=== PATIENT | female | born 1950 | race Caucasian/White ===

== ENCOUNTER 2018-12-19 09:58 | Emergency (ER) | payer BC ==
[2018-12-19 10:22] VITALS: BMI 18.4
[2018-12-19 10:35] VITALS: BP 158/105
[2018-12-19 10:36] LABS: BASO % 0.5 % (0-2.0); EOS % 0.2 % (0-4.5); HEMATOCRIT 38.9 % (32.4-45.2); HEMOGLOBIN 12.8 GM/dl (10.7-15.3); LYMPH % 36.2 % (8-40); MCH 33.5 pg (25.7-33.7); MEAN CELL VOLUME 101.5 fl (80-96); MEAN PLT VOLUME 8.2 fl (7.5-11.1); MONO % 9.3 % (3.8-10.2); NEUT % 53.8 % (42.8-82.8); PLATELET COUNT 428 K/MM3 (134-434); RBC 3.83 M/mm3 (3.60-5.2); RDW 16.2 % (11.6-15.6); WHITE BLOOD COUNT 9.4 K/mm3 (4.0-10.8)
[2018-12-19 10:41] VITALS: PULSE 75; TEMP 98.5
[2018-12-19 10:42] LABS: INR 0.99 (0.82-1.09); PROTHROMBIN TIME (PATIENT) 11.1 SEC (10.2-13.0)
[2018-12-19 10:43] LABS: ALBUMIN 4.9 g/dl (3.4-5.0); BILIRUBIN,TOTAL 0.8 mg/dl (0.2-1); CALCIUM 10.6 mg/dl (8.5-10); CREATININE 0.7 mg/dl (0.55-1.3); MAGNESIUM 1.8 mg/dL (1.8-2.4); TOT PROT 7.6 g/dl (6.4-8.2)
--- NOTE | 2018-12-19 10:57 | PDOC ---
History of Present Illness - General Chief Complaint: Chest Pain Stated Complaint: SOB & CHEST PAINFOR SEVERAL DAYS Time Seen by Provider: 12/19/18 10:00 - History of Present Illness Initial Comments: 12/19/18 11:00 68-year-old female with a significant past medical history of thoracic aortic aneurysm (per pt, 5cm on last check), connective tissue disease, rheumatoid arthritis, anxiety, GERD presents to the emergency department with 2 weeks of progressive sternal chest pain. Patient reports the pain began while she was at rest 2 days ago at home. She reports the pain radiates to both of her arms, particularly her biceps. She also reports the pain was radiating to her back last night, however not today. She reports associated shortness of breath. She denies any associated dizziness, weakness, numbness, diaphoresis, abdominal pain , nausea, vomiting, diarrhea, fevers, chills, coughing. She denies any recent travel or immobility. She denies any similar pain in the past. She waited a long time to come in because she is her 's main clinical documentation specialist. She does not take any anticoagulation, including ASA. No treatments tried. Past History - Past Medical History Allergies/Adverse Reactions: Allergies Allergy/AdvReac Type Severity Reaction Status Date / Time Sulfa (Sulfonamide Allergy Severe Verified 06/17/17 10:54 Antibiotics) iohexol [From Omnipaque] Allergy Verified 06/17/17 10:54 shrimp Allergy Verified 06/17/17 10:54 meperidine [From Demerol] AdvReac Mild Verified 12/19/18 10:50 prednisone AdvReac Mild CONFUSION Verified 12/19/18 10:50 sodium chloride for AdvReac Verified 06/17/17 10:54 inhalation [From Saline] Home Medications: Ambulatory Orders Albuterol Sulfate Inhaler - [Ventolin HFA Inhaler -] 2 inh PO Q4H #1 inh Alprazolam [Xanax] 1 mg PO QID PRN 12/19/18 Epinephrine [Epipen 2-Claude] 12/19/18 Omeprazole 20 mg PO DAILY PRN 12/19/18 Oxycodone HCl/Acetaminophen [Percocet 5-325 mg Tablet] 1 tab PO Q6H PRN Prednisone 10 mg PO DAILY 12/19/18 Anemia: Yes Cardiac Disorders: Yes (h/o tachyarrhythmia THORASIC ANEURSYM) COPD: No GI Disorders: Yes (GERD) Disorders: Yes (SLIM, YDRONEPHROSIS) Hypercholesterolemia: Yes Liver Disease: Yes (CHOLECYSTITIS) Other medical history: CHRONIC PAIN, PLEURAL EFFUSION, THORACIC AORTIC ANEURYSM - Suicide/Smoking/Psychosocial Hx Smoking History: Former smoker Have you smoked in the past 12 months: No Number of Cigarettes Smoked Daily: 0 If you are a former smoker, when did you quit?: 11 YRS AGO Information on smoking cessation initiated: No 'Breaking Loose' booklet given: 02/02/15 Hx Alcohol Use: No Drug/Substance Use Hx: No Substance Use Type: None Hx Substance Use Treatment: No Review of Systems - Review of Systems Comments:: 12/19/18 11:31 GENERAL/CONSTITUTIONAL: No fever or chills. No weakness. HEAD, EYES, EARS, NOSE AND THROAT: No change in vision. No ear pain or discharge. No sore throat. GASTROINTESTINAL: No nausea, vomiting, diarrhea or constipation. GENITOURINARY: No dysuria, frequency, or change in urination. CARDIOVASCULAR: +chest pain and shortness of breath. RESPIRATORY: No cough, wheezing, or hemoptysis. MUSCULOSKELETAL: No joint or muscle swelling or pain. No neck or back pain. SKIN: No rash NEUROLOGIC: No headache, vertigo, loss of consciousness, or change in strength/ sensation. ENDOCRINE: No increased thirst. No abnormal weight change. HEMATOLOGIC/LYMPHATIC: No anemia, easy bleeding, or history of blood clots. ALLERGIC/IMMUNOLOGIC: No hives or skin allergy. *Physical Exam - Vital Signs Last Vital Signs Temp Pulse Resp BP Pulse Ox 98.5 F 75 19 158/105 H 100 12/19/18 10:38 12/19/18 10:38 12/19/18 10:38 12/19/18 10:38 12/19/18 10:30 - Physical Exam Comments: 12/19/18 11:32 GENERAL: Awake, alert, and fully oriented, pale, appears uncomfortable, but in NAD. Conversive. HEAD: No signs of trauma EYES: PERRLA, EOMI, sclera anicteric, conjunctiva clear ENT: Oropharynx clear without exudates. Moist mucosa NECK: Normal ROM, supple, no lymphadenopathy, JVD, or masses LUNGS: Breath sounds equal, clear to auscultation bilaterally. No wheezes, and no crackles HEART: mostly regular rhythm, at times irregular correlating with PVCs on the monitor, normal S1 and S2, no murmurs, rubs or gallops ABDOMEN: Soft, nontender, normoactive bowel sounds. No guarding, no rebound. No masses EXTREMITIES: Normal range of motion, no edema. No cyanosis. No cords, erythema , or tenderness. 2+ radial pulses in UE, 2+ DP and TP pulses b/l feet. BP: RUE 155/96, LUE 159/97 NEUROLOGICAL: Normal speech, cranial nerves intact, 5/5 strength in all 4 extremities, normal sensation to light touch in all 4 extremities, normal cerebellar exam,normal tone, gait deferred. SKIN: Warm, Dry, normal turgor, no rashes or lesions noted. Heart Score/ECG Review - History History: Highly suspicious - Electrocardiogram EKG: Significant ST-depression - Age Age: >/= 65 - Risk Factors Based on the list above the patient has:: 1-2 risk factors - Troponin Troponin: >/=3x normal limit - Score Heart Score - Total: 9 #1 12/19/18 10:07 EKG read and int by me: Sinus rhythm, rate 76, normal axis. SANTA inferiorly III> II with reciprocal depressions in I, avl, V6. All new changes compared to EKG from 06/17/17. #2 12/19/18 10:32 EKG read and int by me: Right sided EKG: elevation in V4R and V5R. Remainder of EKG unchanged from 1007am EKG ED Treatment Course - LABORATORY CBC & Chemistry Diagram: 12/19/18 10:18 12/19/18 10:18 - ADDITIONAL ORDERS Additional order review: Laboratory Results 12/19/18 12/19/18 12/19/18 10:18 10:18 10:18 PT with INR 11.1 INR 0.99 PTT (Actin FS) 30.2 Sodium 131 L Potassium 4.0 Chloride 91 L Carbon Dioxide 25 Anion Gap 15 BUN 11.0 Creatinine 0.7 Est GFR (CKD-EPI)AfAm 103.91 Est GFR (CKD-EPI)NonAf 89.65 Random Glucose 127 H Calcium 10.6 H Magnesium 1.8 Total Bilirubin 0.8 AST 192 H ALT 38 Alkaline Phosphatase 82 Total Protein 7.6 Albumin 4.9 12/19/18 10:18 RBC 3.83 MCV 101.5 H MCHC 33.0 RDW 16.2 H D MPV 8.2 Neutrophils % 53.8 Lymphocytes % 36.2 Monocytes % 9.3 Eosinophils % 0.2 Basophils % 0.5 - RADIOLOGY Radiology Studies Ordered: Category Date Time Status CHEST X-RAY PORTABLE* [RAD] Stat Radiology 12/19/18 10:17 Completed Medical Decision Making - Critical Care Time Total Critical Care Time (minutes): 45 Critical Care Statement: The care of this patient involved high complexity decision making to prevent further life threatening deterioration of the patient 's condition and/or to evaluate & treat vital organ system(s) failure or risk of failure. - Medical Decision Making 12/19/18 10:44 68yo F hx connective tissue disease, 5cm thoracic aortic aneurysm presents to the ED with 2 days of sternal CP radiating to b/l UE and back intermittently, found to have SANTA on EKG. DDx includes STEMI vs thoracic aortic dissection IV placed, 1L NS bolus started given likely inferior SD. V4R elevation indicates right ventricular SD BP, pulses equal b/l in UE and LE. Anticoagulation withheld due to possiblity of dissection Case discussed with [facility] transfer center, pt autoaccepted to laborer laboratory - Dr. Elodia Garcia accepting attending Case discussed eventually with lead pl sql developer Dr. Carpenter who is in agreement to hold off on AC until aortogram in laborer laboratory Plan discussed with pt and who consent for transfer Code red activated, pt transported to [facility] lab[facility] laboratory in stable condition. *DC/Admit/Observation/Transfer Diagnosis at time of Disposition: STEMI (ST elevation myocardial infarction), Chest pain, SOB (shortness of breath) - Discharge Dispostion Disposition: TRANSFER ACUTE CARE/OTHER HOSP Condition at time of disposition: Fair - Referrals Referrals: Tucker Jiménez MD [Primary Care Provider] - - Patient Instructions - Post Discharge Activity - Attestations Physician Attestion: 12/19/18 10:56 I, Dr. Guillermina Brooke MD, attest that this document has been prepared under my direction and personally reviewed by me in its entirety. I further attest, that it accurately reflects all work, treatment, procedures and medical decision -making performed by me.
--- NOTE | 2018-12-20 14:14 | EKG ---
Test Reason : Blood Pressure : / mmHG Vent. Rate : 080 BPM Atrial Rate : 080 BPM P-R Int : 110 ms QRS Dur : 076 ms QT Int : 408 ms P-R-T Axes : 069 055 067 degrees QTc Int : 470 ms SINUS RHYTHM WITH MARKED SINUS ARRHYTHMIA WITH SHORT OH WITH OCCASIONAL PREMATURE VENTRICULAR COMPLEXES INFERIOR INFARCT , AGE UNDETERMINED ACUTE PA / STEMI Consider right ventricular involvement in acute inferior infarct ABNORMAL ECG WHEN COMPARED WITH ECG OF 17-JUN-2017 10:58, SIGNIFICANT CHANGES HAVE OCCURRED CLINICAL CORRELATION IS RECOMMENDED Confirmed by NICCI HAIRSTON MD ([id number]) on 12/20/2018 2:13:59 PM Referred By: JANA ETIENNE Confirmed By:NICCI HAIRSTON MD
--- NOTE | 2018-12-20 14:14 | EKG ---
Test Reason : Blood Pressure : / mmHG Vent. Rate : 072 BPM Atrial Rate : 072 BPM P-R Int : 128 ms QRS Dur : 078 ms QT Int : 440 ms P-R-T Axes : 072 058 019 degrees QTc Int : 481 ms SINUS RHYTHM WITH OCCASIONAL PREMATURE VENTRICULAR COMPLEXES AND PREMATURE ATRIAL COMPLEXES INFERIOR INFARCT (CITED ON OR BEFORE 19-DEC-2018) , POSSIBLY ACUTE ANTEROLATERAL INFARCT , AGE UNDETERMINED ABNORMAL ECG CLINICAL CORRELATION IS RECOMMENDED Confirmed by NICCI HAIRSTON MD ([id number]) on 12/20/2018 2:13:30 PM Referred By: JANA ETIENNE Confirmed By:NICCI HAIRSTON MD
== END 2018-12-19 10:44 | disposition short-term general hospital (02) ==
LOC: FER 09:58
DX: I21.3 ST elevation (STEMI) myocardial infarction of unspecified site (principal); I71.2 Thoracic aortic aneurysm, without rupture; L94.9 Localized connective tissue disorder, unspecified; M06.9 Rheumatoid arthritis, unspecified; F41.9 Anxiety disorder, unspecified; K21.9 Gastro-esophageal reflux disease without esophagitis; Z88.2 Allergy status to sulfonamides; Z91.013 Allergy to seafood; Z88.8 Allergy status to other drugs, medicaments and biological substances; Z88.6 Allergy status to analgesic agent
CPT/HCPCS: 36415; 71045-TC-FY; 80053; 83735; 84484; 85025; 85610; 85730; 93005; 99285-25

== ENCOUNTER 2019-02-17 18:20 | Emergency (ER) | payer BC ==
[2019-02-17 19:14] VITALS: BMI 18.1
[2019-02-17 19:44] LABS: BASO % 0.2 % (0-2.0); EOS % 0.7 % (0-4.5); HEMATOCRIT 36.5 % (32.4-45.2); HEMOGLOBIN 11.9 GM/dl (10.7-15.3); LYMPH % 9.9 % (8-40); MCH 30.2 pg (25.7-33.7); MCHC 32.7 g/dl (32.0-36.0); MEAN CELL VOLUME 92.2 fl (80-96); MEAN PLT VOLUME 7.7 fl (7.5-11.1); MONO % 1.7 % (3.8-10.2); NEUT % 87.5 % (42.8-82.8); PLATELET COUNT 404 K/MM3 (134-434); RBC 3.96 M/mm3 (3.60-5.2); RDW 17.7 % (11.6-15.6); WHITE BLOOD COUNT 8.5 K/mm3 (4.0-10.8)
[2019-02-17 19:55] LABS: ALBUMIN 3.6 g/dl (3.4-5.0); BILIRUBIN,TOTAL 0.8 mg/dl (0.2-1); CALCIUM 9.1 mg/dl (8.5-10); CREATININE 0.7 mg/dl (0.55-1.3); POTASSIUM 4.4 mmol/L (3.5-5.1); TOT PROT 6.6 g/dl (6.4-8.2)
[2019-02-17 19:58] LABS: INR 1.38 (0.82-1.09); PROTHROMBIN TIME (PATIENT) 15.4 SEC (10.2-13.0)
[2019-02-17] MEDS ORDERED: ACETAMINOPHEN 325 MG TABLET (FP) PO ONE (20:21)
[2019-02-17] MEDS ORDERED: SODIUM CHLORIDE 0.9% 500 ML INFUS.BAG IV ONE (20:22)
[2019-02-17] MEDS ORDERED: ACETAMINOPHEN 325 MG TABLET (FP) ONE (20:23)
--- NOTE | 2019-02-17 22:33 | PDOC ---
Documentation entered by Gia Gomez SCRIBE, acting as scribe for Brody Clement MD. Brody Clement MD: This documentation has been prepared by the Jason murillo Aiswarya, SCRIBE, under my direction and personally reviewed by me in its entirety. I confirm that the documentation accurately reflects all work, treatment, procedures, and medical decision making performed by me. History of Present Illness - General Chief Complaint: Vomiting Blood Stated Complaint: GI BLEED History Source: Patient Exam Limitations: No Limitations - History of Present Illness Initial Comments: 02/17/19 20:05 The patient is a 69 year old female, with a significant PMH of anemia, history of tachyarrhythmia thoracic aneurysm, GERD, SLIM, hydronephrosis, HLD, cholecystitis, anxiety and connective tissue disease, who presents to the emergency department with a fever that began 2 days ago. Patient endorses associated symptoms of chest sensation, vomiting, GERD, chills, and sweats. She also mentions that she has been on Vancomycin since 02/17/2019. The patient denies, shortness of breath, headache, lightheadedness and dizziness.Denies nausea, diarrhea and constipation.Denies dysuria, frequency, urgency and hematuria. Allergies: sulfa, meperidine, prednisone Past surgical history: None reported Social history: Former smoker (quit smoking 11 years ago) PCP: Tucker Jiménez Past History - Past Medical History Allergies/Adverse Reactions: Allergies Allergy/AdvReac Type Severity Reaction Status Date / Time Sulfa (Sulfonamide Allergy Severe Verified 06/17/17 10:54 Antibiotics) iohexol [From Omnipaque] Allergy Verified 06/17/17 10:54 shrimp Allergy Verified 06/17/17 10:54 meperidine [From Demerol] AdvReac Mild Verified 12/19/18 10:50 prednisone AdvReac Mild CONFUSION Verified 12/19/18 10:50 sodium chloride for AdvReac Verified 06/17/17 10:54 inhalation [From Saline] Home Medications: Ambulatory Orders Alprazolam [Xanax] 1 mg PO QID PRN 12/19/18 Epinephrine [Epipen 2-Claude] 12/19/18 Oxycodone HCl/Acetaminophen [Percocet 5-325 mg Tablet] 1 tab PO Q6H PRN Acetaminophen 1,000 mg PO TID PRN 02/17/19 Apixaban [Eliquis] 5 mg PO BID 02/17/19 Clopidogrel Bisulfate [Plavix] 75 mg PO DAILY 02/17/19 Lansoprazole [Prevacid] 30 mg PO DAILY 02/17/19 Vancomycin Oral Solution [Vancocin *Oral Solution*] 250 mg PO DAILY 02/17/19 Anemia: Yes Cardiac Disorders: Yes (h/o tachyarrhythmia THORACIC ANEURSYM) COPD: No GI Disorders: Yes (GERD. C.DIFF) Disorders: Yes (SLIM, HYDRONEPHROSIS) Hypercholesterolemia: Yes Liver Disease: Yes (CHOLECYSTITIS) Psychiatric Problems: Yes (ANXIETY) Other medical history: CONNECTIVE TISSUE DISEASE - Psycho Social/Smoking Cessation Hx Smoking History: Former smoker Have you smoked in the past 12 months: No Number of Cigarettes Smoked Daily: 0 If you are a former smoker, when did you quit?: 11 YRS AGO Information on smoking cessation initiated: No 'Breaking Loose' booklet given: 02/02/15 Hx Alcohol Use: No Drug/Substance Use Hx: No Substance Use Type: None Hx Substance Use Treatment: No Review of Systems - Review of Systems Able to Perform ROS?: Yes Comments:: 02/17/19 20:06 GENERAL/CONSTITUTIONAL: +fever. +chills. No weakness. HEAD, EYES, EARS, NOSE AND THROAT: No change in vision. No ear pain or discharge. No sore throat. CARDIOVASCULAR: +chest pain. No shortness of breath. RESPIRATORY: No cough, wheezing, or hemoptysis. GASTROINTESTINAL: +vomiting. No nausea, diarrhea or constipation. GENITOURINARY: No dysuria, frequency, or change in urination. MUSCULOSKELETAL: No joint or muscle swelling or pain. No neck or back pain. SKIN: No rash NEUROLOGIC: No headache, vertigo, loss of consciousness, or change in strength/ sensation. ENDOCRINE: +increased thirst. No abnormal weight change. HEMATOLOGIC/LYMPHATIC: No anemia, easy bleeding, or history of blood clots. ALLERGIC/IMMUNOLOGIC: No hives or skin allergy. *Physical Exam - Vital Signs Last Vital Signs Temp Pulse Resp BP Pulse Ox 102.1 F H 96 H 22 H 87/45 L 94 L 02/17/19 18:22 02/17/19 18:22 02/17/19 18:22 02/17/19 18:22 02/17/19 18:22 - Physical Exam Comments: 02/17/19 20:06 GENERAL: Awake, alert, and fully oriented, in no acute distress HEAD: No signs of trauma EYES: PERRLA, EOMI, sclera anicteric, conjunctiva clear ENT: Auricles normal inspection, hearing grossly normal, nares patent, oropharynx clear without exudates. Moist mucosa NECK: Normal ROM, supple, no lymphadenopathy, JVD, or masses LUNGS: Breath sounds equal, clear to auscultation bilaterally. No wheezes, and no crackles HEART: Regular rate and rhythm, normal S1 and S2, no murmurs, rubs or gallops ABDOMEN: Soft, nontender, normoactive bowel sounds. No guarding, no rebound. No masses EXTREMITIES: Normal range of motion, no edema. No clubbing or cyanosis. No cords, erythema, or tenderness NEUROLOGICAL: Cranial nerves II through XII grossly intact. Normal speech, normal gait SKIN: Warm, Dry, normal turgor, no rashes or lesions noted. Heart Score/ECG Review - ECG Impressions Comment:: 02/17/19 19:18 Sinus rhythm 100 Normal [place] and interval. Twave inversion 2, 3 F, V3,V4 ED Treatment Course - LABORATORY CBC & Chemistry Diagram: 02/17/19 19:25 02/17/19 19:25 Medical Decision Making - Medical Decision Making 02/18/19 07:10 ? sepsis as per pt, ths is her typical BP lactate - x 2 WBC ok no source identified on PE/ ED john observed x 5 hours in Ed with improvement in symptoms cp serial enzymes - EKG unchanged from previous Discharge - Discharge Information Problems reviewed: Yes Clinical Impression/Diagnosis: Febrile illness, acute Condition: Good Disposition: HOME - Admission No - Follow up/Referral Referrals: Tucker Jiménez MD [Primary Care Provider] - Call tomorrow - Patient Discharge Instructions Additional Instructions: Please return to ED immediately if you feel any worse - Post Discharge Activity
[2019-02-17 23:11] VITALS: BP 76/46; PULSE 94; TEMP 100.3
--- NOTE | 2019-02-18 10:44 | EKG ---
Test Reason : Blood Pressure : / mmHG Vent. Rate : 100 BPM Atrial Rate : 100 BPM P-R Int : 114 ms QRS Dur : 078 ms QT Int : 336 ms P-R-T Axes : 072 063 -01 degrees QTc Int : 433 ms NORMAL SINUS RHYTHM POSSIBLE LEFT ATRIAL ENLARGEMENT NONSPECIFIC T WAVE ABNORMALITY ABNORMAL ECG Confirmed by MD JAMESON, LOW ([id number]) on 02/18/2019 10:44:22 AM Referred By: Confirmed By:LOW BARBA MD
== END 2019-02-17 23:41 | disposition home or self-care (01) ==
LOC: FER 18:20
DX: R50.9 Fever, unspecified (principal); D64.9 Anemia, unspecified; Z87.891 Personal history of nicotine dependence; K21.9 Gastro-esophageal reflux disease without esophagitis; F41.9 Anxiety disorder, unspecified; L94.9 Localized connective tissue disorder, unspecified; N17.9 Acute kidney failure, unspecified; N13.30 Unspecified hydronephrosis; Z88.2 Allergy status to sulfonamides; R00.0 Tachycardia, unspecified; Z88.8 Allergy status to other drugs, medicaments and biological substances; Z91.013 Allergy to seafood
CPT/HCPCS: 36415; 71045-TC-FY; 80053; 81003; 81015; 82272; 83605; 84484; 85025; 85610; 85730; 87040; 87086; 87324; 87449; 93005; 99285-25

== ENCOUNTER 2019-05-12 16:27 | Inpatient (IN) | payer OTHER, BC ==
--- NOTE | 2019-05-12 16:45 | PDOC ---
Attending Attestation - Resident Resident Name: Toni Ware - ED Attending Attestation I have performed the following: I have examined & evaluated the patient, The case was reviewed & discussed with the resident, I agree w/resident's findings & plan, Exceptions are as noted - HPI HPI: 05/12/19 17:54 Left flank pain, dysuria, cloudy urine, and fever since . 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 NV in December 2018, subsequent cardiogenic shock, hospitalized for 7 weeks at [facility]. Serious UTI at that time, probably incited by Cramer catheter, treated with antibiotics. Subsequent C. difficile. Recurrent "kidney infection" in April treated with Cipro as an outpatient. Recurrent symptoms as noted above. Patient insists she is allergic to normal saline intravenously, resulting in massive swelling of her entire body. She refuses to receive IV normal saline. Other allergies include sulfonamides, Omnipaque, meperidine, prednisone, and shrimp. - Physicial Exam PE: 05/12/19 17:57 Febrile to 102.7 degrees. Left flank tenderness to palpation. Left lower quadrant tenderness to palpation. No guarding or rebound. Lungs clear. Cardiac without murmur rub or gallop. 05/14/19 07:19 Normal white blood count. Normal lactic acid. 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 Although there are no signs of sepsis at present, this can rapidly develop in a patient such as this. Begun on fluids and antibiotics. Admitted to hospitalist service. Clinically and hemodynamically stable. 05/14/19 07:21
[2019-05-12 17:03] LABS: EPITHELIAL CELLS RARE /hpf
--- NOTE | 2019-05-12 17:23 | PDOC ---
History of Present Illness - General History Source: Patient, Spouse - History of Present Illness Initial Comments: 05/12/19 18:36 Ms. Manjarrez is a 69 y/o woman w/hx recurrent UTIs secondary to structural problem of UV junction p/w 4 days of dysuria, fever, L flank pain. She was recently admitted at [facility] for NM in December 2018, hospital stay at that time complicated by cardiogenic shock, c. diff, UTI attributed to nicholson catheter. She was discharged in January 2019 and reports recurrent UTI symptoms since then. She was last treated for a UTI in April with outpatient ciprofloxacin. She denies any chest pain, shortness of breath, weakness, nausea, vomiting. She endorses ongoing fatigue, L flank pain, dysuria. She reports severe allergy to normal saline and will refuse administration of normal saline. <Toni Ware - Last Filed: 05/12/19 19:00> <Jose Chin - Last Filed: 06/02/19 11:59> - General Chief Complaint: Urinary Problem Stated Complaint: "I HAVE KIDNEY INFECTION" Time Seen by Provider: 05/12/19 16:39 Past History - Past Medical History Anemia: Yes Cardiac Disorders: Yes (h/o tachyarrhythmia THORACIC ANEURSYM) COPD: No GI Disorders: Yes (GERD. C.DIFF) Disorders: Yes (SLIM, HYDRONEPHROSIS) Hypercholesterolemia: Yes Liver Disease: Yes (CHOLECYSTITIS) Psychiatric Problems: Yes (ANXIETY) - Psycho Social/Smoking Cessation Hx Smoking History: Former smoker Have you smoked in the past 12 months: No Number of Cigarettes Smoked Daily: 0 If you are a former smoker, when did you quit?: 11 YRS AGO Information on smoking cessation initiated: No 'Breaking Loose' booklet given: 02/02/15 Hx Alcohol Use: No Drug/Substance Use Hx: No Substance Use Type: None Hx Substance Use Treatment: No <Toni Ware - Last Filed: 05/12/19 19:00> <Jose Chin - Last Filed: 06/02/19 11:59> - Past Medical History Allergies/Adverse Reactions: Allergies Allergy/AdvReac Type Severity Reaction Status Date / Time Sulfa (Sulfonamide Allergy Severe Verified 05/12/19 16:38 Antibiotics) sodium chloride Allergy Unknown Verified 05/13/19 07:07 iohexol [From Omnipaque] Allergy Verified 05/12/19 16:38 shrimp Allergy Verified 05/12/19 16:38 meperidine [From Demerol] AdvReac Mild Verified 05/12/19 16:38 prednisone AdvReac Mild CONFUSION Verified 05/12/19 16:38 sodium chloride for AdvReac Verified 05/12/19 16:38 inhalation [From Saline] N/SALINE Allergy Uncoded 05/12/19 18:07 beta valentin AdvReac Unknown Uncoded 05/12/19 16:46 Home Medications: Ambulatory Orders Alprazolam [Xanax] 1 mg PO QID PRN 12/19/18 Epinephrine [Epipen 2-Claude] 0.3 mg IJ PRN PRN 12/19/18 Oxycodone HCl/Acetaminophen [Percocet 5-325 mg Tablet] 1 tab PO Q6H PRN Acetaminophen 1,000 mg PO TID PRN 02/17/19 Apixaban [Eliquis] 5 mg PO BID 02/17/19 Clopidogrel Bisulfate [Plavix] 75 mg PO DAILY 02/17/19 Lansoprazole [Prevacid] 30 mg PO DAILY 02/17/19 Lansoprazole [Prevacid] 30 mg PO DAILY 05/12/19 Meclizine HCl 25 mg PO PRN PRN 05/12/19 levoFLOXacin [Levaquin -] 500 mg PO DAILY #7 tablet 05/16/19 Review of Systems - Review of Systems Able to Perform ROS?: Yes <Toni Ware - Last Filed: 05/12/19 19:00> *Physical Exam - Vital Signs Last Vital Signs Temp Pulse Resp BP Pulse Ox 102.7 F H 77 18 153/94 98 05/12/19 16:29 05/12/19 16:29 05/12/19 16:29 05/12/19 16:29 05/12/19 16:29 <Toni Ware - Last Filed: 05/12/19 19:00> - Vital Signs Last Vital Signs Temp Pulse Resp BP Pulse Ox 98.4 F 64 16 112/55 L 98 05/16/19 06:00 05/16/19 06:00 05/16/19 08:55 05/16/19 06:00 05/16/19 08:55 <Jose Chin - Last Filed: 06/02/19 11:59> ED Treatment Course - LABORATORY CBC & Chemistry Diagram: 05/12/19 17:50 05/12/19 17:50 - ADDITIONAL ORDERS Additional order review: Laboratory Results 05/12/19 16:49 Urine Color Yellow Urine Appearance Cloudy Urine pH 8.5 H Urine Protein 2+ H Urine Glucose (UA) Negative Urine Ketones Negative Urine Blood 2+ H Urine Nitrite Positive H Urine Bilirubin Negative Urine Urobilinogen 1.0 Ur Leukocyte Esterase 3+ Urine RBC 5-10 Urine WBC Many Ur Transition Epith Cell Rare Urine Bacteria Many <Toni Ware - Last Filed: 05/12/19 19:00> - LABORATORY CBC & Chemistry Diagram: 05/16/19 07:07 05/16/19 07:07 - ADDITIONAL ORDERS Additional order review: 05/12/19 17:50 Blood Culture - Final Blood - Peripheral Venous NO GROWTH AFTER 5 DAYS INCUBATION 05/12/19 17:40 Blood Culture - Final Blood - Peripheral Venous NO GROWTH AFTER 5 DAYS INCUBATION 05/12/19 16:49 Urine Culture - Final Urine - Urine Clean Catch Proteus Mirabilis 05/12/19 17:50 RBC 3.97 MCV 88.0 MCHC 33.5 RDW 14.4 D MPV 8.3 Neutrophils % 69.9 Lymphocytes % 18.1 Monocytes % 11.6 H Eosinophils % 0.1 Basophils % 0.3 - RADIOLOGY Radiology Studies Ordered: Category Date Time Status CHEST X-RAY PORTABLE* [RAD] Stat Radiology 05/12/19 17:32 Completed - Medications Given in the ED: ED Medications Discontinued Medications Generic Name Dose Route Start Last Admin Trade Name Freq PRN Reason Stop Dose Admin Acetaminophen 650 mg 05/12/19 18:11 05/12/19 18:18 Tylenol - PO 05/12/19 18:12 650 mg ONCE ONE Administration Acetaminophen 650 mg 05/12/19 18:52 05/14/19 23:54 Tylenol - PO 650 mg Q6H PRN Administration FEVER Apixaban 5 mg 05/12/19 22:15 05/16/19 09:30 Eliquis - PO 5 mg BID RADHA Administration Clopidogrel Bisulfate 75 mg 05/13/19 10:00 05/16/19 09:30 Plavix - PO 75 mg DAILY RADHA Administration Ceftriaxone Sodium 1 gm/ 50 mls @ 100 mls/hr 05/12/19 18:46 05/12/19 19:08 Dextrose IVPB 05/12/19 19:15 100 mls/hr ONCE ONE Administration Lactated Ringer's 1,000 ml in 1,000 mls @ 75 mls/hr 05/12/19 19:00 05/13/19 09:59 Lactated Ringers Solution IV Not Given ASDIR RADHA Ceftriaxone Sodium 1,000 mg/ 50 mls @ 100 mls/hr 05/12/19 19:03 05/12/19 19: 16 Dextrose IVPB 05/12/19 19:32 Not Given ONCE ONE Lactated Ringer's 1,000 mls @ 100 mls/hr 05/12/19 22:15 05/15/19 21:28 Lactated Ringers Solution IV 100 mls/hr ASDIR RADHA Administration Levofloxacin 750 mg in 150 mls @ 100 mls/hr 05/13/19 10:00 05/16/19 09:30 Levaquin 750 Mg Premixed Ivpb - IVPB 100 mls/hr DAILY RADHA Administration Protocol Magnesium Sulfate 2 gm in 50 mls @ 50 mls/hr 05/13/19 09:00 05/13/19 09:54 Magnesium Sulf 2 G/50 Ml Bag IVPB 05/13/19 09:59 50 mls/hr ONCE ONE Administration Sodium Chloride 500 mls @ 500 mls/hr 05/13/19 15:19 05/13/19 16:21 Normal Saline - IV 05/13/19 16:18 Not Given ASDIR STA Lactated Ringer's 1,000 ml in 1,000 mls @ 1,000 mls/hr 05/13/19 18:14 18:31 Lactated Ringers Solution IV 05/13/19 19:13 1,000 mls/hr ONCE ONE Administration Magnesium Sulfate 2 gm in 50 mls @ 50 mls/hr 05/14/19 13:30 05/14/19 13:55 Magnesium Sulf 2 G/50 Ml Bag IVPB 05/14/19 14:29 50 mls/hr ONCE ONE Administration Lactated Ringer's 1,000 ml 05/12/19 17:47 05/12/19 18:07 Lactated Ringers Solution IV 05/12/19 17:48 1,000 ml ONCE ONE Administration Potassium Chloride 40 meq 05/13/19 09:00 05/13/19 15:10 K-Dur - PO 05/13/19 15:01 40 meq Q6H RADHA Administration Potassium Chloride 40 meq 05/14/19 13:15 05/14/19 13:55 K-Dur - PO 05/14/19 13:16 40 meq ONCE ONE Administration Potassium Chloride 40 meq 05/15/19 17:47 05/15/19 18:18 K-Dur - PO 05/15/19 17:48 40 meq ONCE ONE Administration <Jose Chin - Last Filed: 06/02/19 11:59> Discharge - Discharge Information Problems reviewed: Yes - Admission Yes <Toni Ware - Last Filed: 05/12/19 19:00> <Jose Chin - Last Filed: 06/02/19 11:59> - Discharge Information Clinical Impression/Diagnosis: Pyelonephritis Condition: Improved Disposition: HOME
[2019-05-12] MEDS ORDERED: LACTATED RINGERS SOLUTION 1000 ML INFUS.BAG IV ONE (17:47)
[2019-05-12 18:11] LABS: BASO % 0.3 % (0-2.0); EOS % 0.1 % (0-4.5); MEAN PLT VOLUME 8.3 fl (7.5-11.1); RDW 14.4 % (11.6-15.6); WHITE BLOOD COUNT 8.6 K/mm3 (4.0-10.8)
[2019-05-12] MEDS ORDERED: ACETAMINOPHEN 325 MG TABLET (FP) PO ONE (18:11)
[2019-05-12 18:14] LABS: HEMATOCRIT 34.9 % (32.4-45.2); HEMOGLOBIN 11.7 GM/dl (10.7-15.3); LYMPH % 18.1 % (8-40); MCH 29.5 pg (25.7-33.7); MCHC 33.5 g/dl (32.0-36.0); MONO % 11.6 % (3.8-10.2); NEUT % 69.9 % (42.8-82.8); PLATELET COUNT 250 K/MM3 (134-434); RBC 3.97 M/mm3 (3.60-5.2)
[2019-05-12 18:18] LABS: ALBUMIN 3.7 g/dl (3.4-5.0); BILIRUBIN,TOTAL 1.2 mg/dl (0.2-1); CREATININE 0.6 mg/dl (0.55-1.3); POTASSIUM 3.8 mmol/L (3.5-5.1); TOT PROT 6.7 g/dl (6.4-8.2)
[2019-05-12] MEDS ORDERED: ACETAMINOPHEN 325 MG TABLET (FP) ONE (18:18)
[2019-05-12 18:21] LABS: INR 1.83 (0.82-1.09); PROTHROMBIN TIME (PATIENT) 20.3 SEC (10.2-13.0)
[2019-05-12] MEDS ORDERED: CEFTRIAXONE 1 GM in DEXTROSE 5%-WATER - 50 ML IVPB ONE (18:46)
[2019-05-12] MEDS ORDERED: cefTRIAXone SODIUM 1 GM VIAL ONE (19:00)
[2019-05-12] MEDS ORDERED: LACTATED RINGERS SOLUTION 1,000 ML/1,000 ML INFUS.BAG IV SCH (19:00)
[2019-05-12] MEDS ORDERED: CEFTRIAXONE 1,000 MG in DEXTROSE 5%-WATER - 50 ML IVPB ONE (19:03)
[2019-05-12] MEDS ORDERED: ALPRAZolam 1 MG TABLET PO PRN (22:01)
[2019-05-12] MEDS: APIXABAN 5 MG TABLET PO SCH (22:15)
[2019-05-13] MEDS: ACETAMINOPHEN 325 MG TABLET (FP) PO PRN ×2 (05:43→15:10)
[2019-05-13 08:01] LABS: BASO % 0.3 % (0-2.0); EOS % 0.3 % (0-4.5); HEMATOCRIT 32.1 % (32.4-45.2); LYMPH % 26.7 % (8-40); MCH 30.3 pg (25.7-33.7); MCHC 34.3 g/dl (32.0-36.0); MEAN CELL VOLUME 88.4 fl (80-96); MEAN PLT VOLUME 8.6 fl (7.5-11.1); NEUT % 56.7 % (42.8-82.8); PLATELET COUNT 230 K/MM3 (134-434); RBC 3.64 M/mm3 (3.60-5.2); RDW 14.2 % (11.6-15.6); WHITE BLOOD COUNT 6.4 K/mm3 (4.0-10.8)
[2019-05-13 08:12] LABS: ALBUMIN 3.2 g/dl (3.4-5.0); BILIRUBIN,TOTAL 0.7 mg/dl (0.2-1); CALCIUM 8.8 mg/dl (8.5-10); CREATININE 0.6 mg/dl (0.55-1.3); MAGNESIUM 1.6 mg/dL (1.8-2.4); POTASSIUM 3.3 mmol/L (3.5-5.1); TOT PROT 5.8 g/dl (6.4-8.2)
--- NOTE | 2019-05-13 08:14 | HP ---
CHIEF COMPLAINT: Left flank pain, dysuria, fever PCP: Dr. Jiménez HISTORY OF PRESENT ILLNESS: 69 year-old female with a PMH significant for UPJ obstruction since childhood, chronic left hydronephrosis, rheumatoid arthritis, thoracic aortic aneurysm, anxiety. Had PA in December 2018, subsequent cardiogenic shock, 7 weeks at [facility] , no stent or surgery was done. Had nicholson catheter during hospitalization and c. difficile. Has had two UTIs since discharge treated with PO antibiotics. Presents to the ED with left flank pain, dysuria, foul-smelling urine, fever, and chills x 4 days. ER course was notable for: (1) T 102.7 (2) Na 128 Recent Travel: No PAST MEDICAL HISTORY: Coronary artery disease s/p PA 12/2018 UPJ obstruction, chronic Left hydronephrosis, chronic Rhematoid arthritis Thoracic aortic aneurysm Anxiety PAST SURGICAL HISTORY: None reported Social History: Smoking: quit 2006 Alcohol: occasional Drugs: no Family history: history of sudden (uncle) from ruptured aneurysm Allergies Patient insists she is allergic to normal saline intravenously, resulting in massive swelling of her entire body. She refuses to receive IV normal saline. Other allergies include sulfonamides, Omnipaque, meperidine, prednisone, and shrimp. Sulfa (Sulfonamide Antibiotics) Allergy (Severe, Verified 05/12/19 16:38) sodium chloride Allergy (Unknown, Verified 05/13/19 07:07) iohexol [From Omnipaque] Allergy (Verified 05/12/19 16:38) shrimp Allergy (Verified 05/12/19 16:38) meperidine [From Demerol] Adverse Reaction (Mild, Verified 05/12/19 16:38) CONFUSION prednisone Adverse Reaction (Mild, Verified 05/12/19 16:38) CONFUSION sodium chloride for inhalation [From Saline] Adverse Reaction (Verified 16:38) SWELLING N/SALINE Allergy (Uncoded 05/12/19 18:07) WEIGHT GAIN. beta valentin Adverse Reaction (Unknown, Uncoded 05/12/19 16:46) HOME MEDICATIONS: Home Medications Medication Instructions Recorded Alprazolam [Xanax] 1 mg PO QID PRN 12/19/18 Epinephrine [Epipen 2-Claude] 0.3 mg IJ PRN PRN 12/19/18 Oxycodone HCl/Acetaminophen 1 tab PO Q6H PRN 12/19/18 [Percocet 5-325 mg Tablet] Acetaminophen 1,000 mg PO TID PRN 02/17/19 Apixaban [Eliquis] 5 mg PO BID 02/17/19 Clopidogrel Bisulfate [Plavix] 75 mg PO DAILY 02/17/19 Lansoprazole [Prevacid] 30 mg PO DAILY 02/17/19 Lansoprazole [Prevacid] 30 mg PO DAILY 05/12/19 Meclizine HCl 25 mg PO PRN PRN 05/12/19 REVIEW OF SYSTEMS CONSTITUTIONAL: +fever, chills Absent: fever, chills, diaphoresis, generalized weakness, malaise, loss of appetite, weight change HEENT: Absent: rhinorrhea, nasal congestion, throat pain, throat swelling, difficulty swallowing, mouth swelling, ear pain, eye pain, visual changes CARDIOVASCULAR: Absent: chest pain, syncope, palpitations, irregular heart rate, lightheadedness , peripheral edema RESPIRATORY: Absent: cough, shortness of breath, dyspnea with exertion, orthopnea, wheezing, stridor, hemoptysis GASTROINTESTINAL: Absent: abdominal pain, abdominal distension, nausea, vomiting, diarrhea, constipation, melena, hematochezia GENITOURINARY: +flank pain, foul-smelling urine dysuria Absent: frequency, urgency, hesitancy, hematuria, genital pain MUSCULOSKELETAL: Absent: myalgia, arthralgia, joint swelling, back pain, neck pain SKIN: Absent: rash, itching, pallor HEMATOLOGIC/IMMUNOLOGIC: Absent: easy bleeding, easy bruising, lymphadenopathy, frequent infections ENDOCRINE: Absent: unexplained weight gain, unexplained weight loss, heat intolerance, cold intolerance NEUROLOGIC: Absent: headache, focal weakness or paresthesias, dizziness, unsteady gait, seizure, mental status changes, bladder or bowel incontinence PSYCHIATRIC: Absent: anxiety, depression, suicidal or homicidal ideation, hallucinations. PHYSICAL EXAMINATION Vital Signs - 24 hr 05/12/19 05/12/19 05/12/19 16:29 18:17 18:45 Temperature 102.7 F H 99.9 F H 98.7 F Pulse Rate 77 89 Pulse Rate [ Left] Respiratory 18 16 Rate Blood Pressure 153/94 95/54 L Blood Pressure [Left] O2 Sat by Pulse 98 100 Oximetry (%) 05/12/19 05/12/19 05/12/19 21:00 21:59 22:03 Temperature 99.1 F 98.7 F Pulse Rate 89 Pulse Rate [ 64 Left] Respiratory 16 16 16 Rate Blood Pressure 95/54 L Blood Pressure 91/49 L [Left] O2 Sat by Pulse 100 96 100 Oximetry (%) 05/13/19 05/13/19 05/13/19 02:02 06:00 06:24 Temperature 97.6 F 98.7 F Pulse Rate 75 94 H Pulse Rate [ Left] Respiratory 18 18 Rate Blood Pressure 101/54 L 103/43 L Blood Pressure [Left] O2 Sat by Pulse 100 99 Oximetry (%) GENERAL: Awake, alert, and fully oriented, in no acute distress. HEAD: Normal with no signs of trauma. EYES: Pupils equal, round and reactive to light, extraocular movements intact, sclera anicteric, conjunctiva clear. LUNGS: Breath sounds equal, clear to auscultation bilaterally. No wheezes, and no crackles. No accessory muscle use. HEART: Regular rate and rhythm, S1 and S2 ABDOMEN: Soft, nontender, not distended, normoactive bowel sounds MUSCULOSKELETAL: Normal range of motion at all joints. No bony deformities or tenderness. No CVA tenderness. UPPER EXTREMITIES: 2+ pulses, warm, well-perfused. No cyanosis. No clubbing. No peripheral edema. LOWER EXTREMITIES: 2+ pulses, warm, well-perfused. No calf tenderness. No peripheral edema. NEUROLOGICAL: Cranial nerves II-XII intact. Normal speech. Laboratory Results - last 24 hr 05/12/19 05/12/19 05/12/19 16:49 17:50 17:50 WBC RBC Hgb Hct MCV MCH MCHC RDW Plt Count MPV Absolute Neuts (auto) Neutrophils % Lymphocytes % Monocytes % Eosinophils % Basophils % PT with INR INR Sodium 128 L Potassium 3.8 Chloride 99 Carbon Dioxide 21 Anion Gap 8 BUN 13.0 Creatinine 0.6 Est GFR (CKD-EPI)AfAm 108.55 Est GFR (CKD-EPI)NonAf 93.66 Random Glucose 95 Lactic Acid Calcium 9.0 Magnesium Total Bilirubin 1.2 H AST 41 H ALT 27 Alkaline Phosphatase 96 Creatine Kinase 144 Troponin I 0.03 Total Protein 6.7 Albumin 3.7 Urine Color Yellow Urine Appearance Cloudy Urine pH 8.5 H Urine Protein 2+ H Urine Glucose (UA) Negative Urine Ketones Negative Urine Blood 2+ H Urine Nitrite Positive H Urine Bilirubin Negative Urine Urobilinogen 1.0 Ur Leukocyte Esterase 3+ Urine RBC 5-10 Urine WBC Many Ur Transition Epith Cell Rare Urine Bacteria Many 05/12/19 05/12/19 05/12/19 17:50 17:50 17:50 WBC 8.6 RBC 3.97 Hgb 11.7 Hct 34.9 MCV 88.0 MCH 29.5 MCHC 33.5 RDW 14.4 D Plt Count 250 MPV 8.3 Absolute Neuts (auto) 6.0 Neutrophils % 69.9 Lymphocytes % 18.1 Monocytes % 11.6 H Eosinophils % 0.1 Basophils % 0.3 PT with INR 20.3 H INR 1.83 H Sodium Potassium Chloride Carbon Dioxide Anion Gap BUN Creatinine Est GFR (CKD-EPI)AfAm Est GFR (CKD-EPI)NonAf Random Glucose Lactic Acid 1.0 Calcium Magnesium Total Bilirubin AST ALT Alkaline Phosphatase Creatine Kinase Troponin I Total Protein Albumin Urine Color Urine Appearance Urine pH Urine Protein Urine Glucose (UA) Urine Ketones Urine Blood Urine Nitrite Urine Bilirubin Urine Urobilinogen Ur Leukocyte Esterase Urine RBC Urine WBC Ur Transition Epith Cell Urine Bacteria 05/13/19 05/13/19 07:20 07:20 WBC 6.4 RBC 3.64 Hgb 11.0 Hct 32.1 L MCV 88.4 MCH 30.3 MCHC 34.3 RDW 14.2 Plt Count 230 MPV 8.6 Absolute Neuts (auto) 3.7 Neutrophils % 56.7 Lymphocytes % 26.7 Monocytes % 16.0 H Eosinophils % 0.3 Basophils % 0.3 PT with INR INR Sodium 132 L Potassium 3.3 L Chloride 102 Carbon Dioxide 20 L Anion Gap 10 BUN 11.0 Creatinine 0.6 Est GFR (CKD-EPI)AfAm 108.55 Est GFR (CKD-EPI)NonAf 93.66 Random Glucose 93 Lactic Acid Calcium 8.8 Magnesium 1.6 L Total Bilirubin 0.7 AST 46 H ALT 29 Alkaline Phosphatase 90 Creatine Kinase Troponin I Total Protein 5.8 L Albumin 3.2 L Urine Color Urine Appearance Urine pH Urine Protein Urine Glucose (UA) Urine Ketones Urine Blood Urine Nitrite Urine Bilirubin Urine Urobilinogen Ur Leukocyte Esterase Urine RBC Urine WBC Ur Transition Epith Cell Urine Bacteria ASSESSMENT/PLAN: 69 year-old female with a PMH significant for CAD, UPJ obstruction since childhood, chronic left hydronephrosis, rheumatoid arthritis, thoracic aortic aneurysm, anxiety. Admitted for pyelonephritis. Pyelonephritis --febrile on admission, no leukocytosis --continue levofloxacin --mildly hypotensive, give 1L bolus LR, then hourly (patient claims intolerance to NS) --cultures pending Hydronephrosis, chronic UPJ obstruction, chronic --05/13 US: moderately severe left renal hydronephrosis --renal function stable --CTAP to r/o acute pathology Right hepatic lobe lesion --likely cavernous hemangioma increased in size since 2017 --CTAP pending Coronary artery disease --follows regularly with Dr. Amilcar Joe, lawyer, is on Eliquis and Plavix (denies h/o stent placement, surgery), will continue Rheumatoid arthritis --on no medication Thoracid aortic aneurysm --follows regularly with lawyer Anxiety --continue xanax FEN Fluids: LR@100mL/hr Electrolytes: replete as indicated Nutrition: low sodium DVT prophylaxis: on Eliquis Physical therapy Dispo: continues to require inpatient care. Full code. Visit type - Emergency Visit Emergency Visit: Yes ED Registration Date: 05/12/19 Care time: The patient presented to the Emergency Department on the above date and was hospitalized for further evaluation of their emergent condition. - New Patient This patient is new to me today: Yes Date on this admission: 05/13/19 - Critical Care Critical Care patient: No
[2019-05-13] MEDS ORDERED: MAGNESIUM SULF 50% (8.12 MEQ/2 ML-1 GM VIAL) IVPB ONE (08:41)
[2019-05-13] MEDS ORDERED: MAGNESIUM SULFATE IN WATER 2 GM/50 ML IVPB IVPB ONE (09:00)
[2019-05-13] MEDS: POTASSIUM CHLORIDE TABS 20 MEQ TABLET.ER (FP) PO SCH ×2 (09:55→15:10)
[2019-05-13] MEDS: CLOPIDOGREL BISULFATE 75 MG TABLET (FP) PO SCH (09:55)
[2019-05-13] MEDS: APIXABAN 5 MG TABLET PO SCH ×2 (09:55→21:52)
[2019-05-13] MEDS: LACTATED RINGERS SOLUTION 1,000 ML IV SCH (09:59)
--- NOTE | 2019-05-13 13:04 | EKG ---
Test Reason : Blood Pressure : / mmHG Vent. Rate : 078 BPM Atrial Rate : 078 BPM P-R Int : 128 ms QRS Dur : 088 ms QT Int : 394 ms P-R-T Axes : 073 058 -59 degrees QTc Int : 449 ms POOR DATA QUALITY, INTERPRETATION MAY BE ADVERSELY AFFECTED SINUS RHYTHM WITH OCCASIONAL PREMATURE VENTRICULAR COMPLEXES POSSIBLE INFERIOR INFARCT , AGE UNDETERMINED ABNORMAL ECG Confirmed by Smith Lynch MD ([id number]) on 05/13/2019 1:04:17 PM Referred By: Confirmed By:Smith Lynch MD
[2019-05-13] MEDS ORDERED: SODIUM CHLORIDE 500 ML IV STA (15:19)
[2019-05-13] MEDS ORDERED: LACTATED RINGERS SOLUTION 1,000 ML/1,000 ML INFUS.BAG IV ONE (18:14)
--- NOTE | 2019-05-14 07:29 | PN ---
Progress Note, Physician - Current Medication List Current Medications: Active Medications Acetaminophen (Tylenol -) 650 mg PO Q6H PRN PRN Reason: FEVER Last Admin: 05/13/19 15:10 Dose: 650 mg Alprazolam (Xanax) 1 mg PO QID PRN PRN Reason: ANXIETY Apixaban (Eliquis -) 5 mg PO BID [facility] Last Admin: 05/13/19 21:52 Dose: 5 mg Clopidogrel Bisulfate (Plavix -) 75 mg PO DAILY [facility] Last Admin: 05/13/19 09:55 Dose: 75 mg Lactated Ringer's (Lactated Ringers Solution) 1,000 mls @ 100 mls/hr IV ASDIR [facility] Last Admin: 05/13/19 09:59 Dose: Not Given Levofloxacin (Levaquin 750 Mg Premixed Ivpb -) 750 mg in 150 mls @ 100 mls/hr IVPB DAILY [facility]; Protocol Last Admin: 05/13/19 09:55 Dose: 100 mls/hr - Objective Vital Signs: Vital Signs Temperature 98.2 F 05/14/19 04:00 Pulse Rate 82 05/14/19 04:00 Respiratory Rate 18 05/14/19 04:00 Blood Pressure 108/55 L 05/14/19 04:00 O2 Sat by Pulse Oximetry (%) 98 05/14/19 04:00 Cardiovascular: Yes: S1, S2 Respiratory: Yes: Regular, CTA Bilaterally Gastrointestinal: Yes: Normal Bowel Sounds, Soft, Tenderness (flank) Labs: CBC, BMP 05/13/19 07:20 05/13/19 07:20 INR, PTT INR 1.83 (0.82-1.09) H 05/12/19 17:50 Problem List - Problems (1) H/O myocardial infarction, greater than 8 weeks Assessment/Plan: same meds monitor Code(s): I25.2 - OLD MYOCARDIAL INFARCTION (2) Pyelonephritis Assessment/Plan: IV ABX AWAIT CT SCAN ID CONSULT Code(s): N12 - TUBULO-INTERSTITIAL NEPHRITIS, NOT SPCF ACUTE OR CHRONIC (3) GERD (gastroesophageal reflux disease) Assessment/Plan: PPI Code(s): K21.9 - GASTRO-ESOPHAGEAL REFLUX DISEASE WITHOUT ESOPHAGITIS (4) Hydronephrosis Assessment/Plan: AWAIT CT CHRONIC Code(s): N13.30 - UNSPECIFIED HYDRONEPHROSIS (5) Thoracic aortic aneurysm Assessment/Plan: STABLE Code(s): I71.2 - THORACIC AORTIC ANEURYSM, WITHOUT RUPTURE
[2019-05-14 09:51] LABS: BASO % 0.3 % (0-2.0); EOS % 1.7 % (0-4.5); HEMATOCRIT 30.5 % (32.4-45.2); LYMPH % 39.6 % (8-40); MCH 29.3 pg (25.7-33.7); MCHC 32.9 g/dl (32.0-36.0); MONO % 15.3 % (3.8-10.2); NEUT % 43.1 % (42.8-82.8); PLATELET COUNT 254 K/MM3 (134-434); RBC 3.43 M/mm3 (3.60-5.2); RDW 14.6 % (11.6-15.6); WHITE BLOOD COUNT 4.6 K/mm3 (4.0-10.8)
[2019-05-14] MEDS: CLOPIDOGREL BISULFATE 75 MG TABLET (FP) PO SCH (09:55)
[2019-05-14] MEDS: APIXABAN 5 MG TABLET PO SCH ×2 (09:55→21:20)
[2019-05-14 09:56] LABS: ALBUMIN 2.7 g/dl (3.4-5.0); BILIRUBIN,TOTAL 0.2 mg/dl (0.2-1); CALCIUM 8.5 mg/dl (8.5-10); CREATININE 0.5 mg/dl (0.55-1.3); MAGNESIUM 1.7 mg/dL (1.8-2.4); POTASSIUM 3.4 mmol/L (3.5-5.1); TOT PROT 5.3 g/dl (6.4-8.2)
[2019-05-14] MEDS: LACTATED RINGERS SOLUTION 1,000 ML IV SCH ×2 (09:56→21:20)
[2019-05-14] MEDS ORDERED: MAGNESIUM SULF 50% (8.12 MEQ/2 ML-1 GM VIAL) IVPB ONE (13:10)
[2019-05-14] MEDS ORDERED: POTASSIUM CHLORIDE TABS 20 MEQ TABLET.ER (FP) PO ONE (13:15)
[2019-05-14] MEDS ORDERED: MAGNESIUM SULFATE IN WATER 2 GM/50 ML IVPB IVPB ONE (13:30)
[2019-05-14 16:51] VITALS: BMI 19.3
--- NOTE | 2019-05-14 20:26 | PN ---
Progress Note (short form) - Note Progress Note: ID CONSULT DICTATED UTI R/O PYELONEPHRITIS AWAIT C/S CONTINUE EMPIRIC LEVAQUIN
--- NOTE | 2019-05-14 23:17 | CONS ---
DATE OF CONSULTATION: 05/14/2019 Patient is a 69-year-old female who was admitted to the hospital on May 12, 2019, with complaints of left flank pain. She had a several-day history of left flank pain associated with malodorous and cloudy urine as well as subjective fever. She presented to the hospital where she was noted to have a fever of 102.7 and left CVA tenderness. Cultures were obtained. She was empirically treated with Levaquin. The patient has a history of a left UV junction anatomical stricture, which had been unsuccessfully repaired in the past. She has had a history of recurrent urinary tract infections. She most recently had a urinary tract infection in April of 2019. The patient reports a recent complicated [facility] admission where she was treated for sepsis. The cultures were obtained and she was empirically treated with Levaquin. At the present time, she is awake and alert. She reports improvement in her urinary tract symptoms. She denies any dysuria at the present time. No complaints of suprapubic or flank tenderness. She has defervesced on antibiotic therapy. Blood cultures preliminarily are negative. 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 She denies history of multi drug-resistant urinary tract pathogens. PAST MEDICAL HISTORY: Positive for recurrent urinary tract infections, history of left UV junction stricture, history of Clostridium difficile colitis. ALLERGIES: SULFA, DEMEROL, AND PREDNISONE. MEDICATIONS: At the present time include Levaquin, Xanax, Eliquis, Plavix. SOCIAL HISTORY: She resides in the community. She is a former smoker. No history of alcohol abuse. SYSTEMS REVIEW: Neurologic: No loss of consciousness, seizure activity, or focal weakness. Cardiac: Negative chest pain or palpitations. Respiratory: Negative cough or sputum production. Gastrointestinal: Negative vomiting or diarrhea. Genitourinary: As per HPI. LABORATORY DATA: White count 4.6, hematocrit 30.5, platelets 254, creatinine 0.5. Urinalysis: Many white cells. 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 Blood cultures: Negative. Ultrasound of the kidneys reveal a left hydronephrosis. PHYSICAL EXAMINATION: General: She is awake and alert, supine, seated in bed. Vital Signs: Temperature 98.6, blood pressure 103/63, pulse 72 and regular, respirations 18 per minute. HEENT: Sclerae anicteric. Heart Sounds: S1, S2. Lungs: Clear. Abdomen: Soft, no suprapubic or flank tenderness. Extremities: Negative for edema. IMPRESSION: 1. Recurrent urinary tract infection, rule out pyelonephritis. 2. History of left ureteral stricture. PLAN: Continue antibiotic coverage with Levaquin pending sepsis workup. Will follow. Thank you for the kind referral. NICCI PARKER M.D. [id number]
[2019-05-14] MEDS: ACETAMINOPHEN 325 MG TABLET (FP) PO PRN (23:54)
[2019-05-15] MEDS: APIXABAN 5 MG TABLET PO SCH ×2 (09:20→21:28)
[2019-05-15] MEDS: CLOPIDOGREL BISULFATE 75 MG TABLET (FP) PO SCH (09:20)
[2019-05-15] MEDS ORDERED: POTASSIUM CHLORIDE TABS 10 MEQ TABLET.ER (FP) PO ONE (17:47)
--- NOTE | 2019-05-15 18:28 | PN ---
Progress Note, Physician - Current Medication List Current Medications: Active Medications Acetaminophen (Tylenol -) 650 mg PO Q6H PRN PRN Reason: FEVER Last Admin: 05/14/19 23:54 Dose: 650 mg Alprazolam (Xanax) 1 mg PO QID PRN PRN Reason: ANXIETY Apixaban (Eliquis -) 5 mg PO BID [facility] Last Admin: 05/15/19 09:20 Dose: 5 mg Clopidogrel Bisulfate (Plavix -) 75 mg PO DAILY [facility] Last Admin: 05/15/19 09:20 Dose: 75 mg Lactated Ringer's (Lactated Ringers Solution) 1,000 mls @ 100 mls/hr IV ASDIR [facility] Last Admin: 05/14/19 21:20 Dose: 100 mls/hr Levofloxacin (Levaquin 750 Mg Premixed Ivpb -) 750 mg in 150 mls @ 100 mls/hr IVPB DAILY [facility]; Protocol Last Admin: 05/15/19 09:20 Dose: 100 mls/hr - Objective Vital Signs: Vital Signs Temperature 98.0 F 05/15/19 14:00 Pulse Rate 75 05/15/19 14:00 Respiratory Rate 17 05/15/19 14:00 Blood Pressure 105/81 05/15/19 14:00 O2 Sat by Pulse Oximetry (%) 100 05/15/19 14:00 Cardiovascular: Yes: Regular Rate and Rhythm Respiratory: Yes: Regular, CTA Bilaterally Gastrointestinal: Yes: Normal Bowel Sounds, Soft Labs: CBC, BMP 05/14/19 09:32 05/14/19 09:32 INR, PTT INR 1.83 (0.82-1.09) H 05/12/19 17:50 Problem List - Problems (1) H/O myocardial infarction, greater than 8 weeks Assessment/Plan: same meds monitor Code(s): I25.2 - OLD MYOCARDIAL INFARCTION (2) Pyelonephritis Assessment/Plan: IV ABX AWAIT CT SCAN ID CONSULT Code(s): N12 - TUBULO-INTERSTITIAL NEPHRITIS, NOT SPCF ACUTE OR CHRONIC (3) GERD (gastroesophageal reflux disease) Assessment/Plan: PPI Code(s): K21.9 - GASTRO-ESOPHAGEAL REFLUX DISEASE WITHOUT ESOPHAGITIS (4) Hydronephrosis Assessment/Plan: CT SCAN NOTED CHRONIC Code(s): N13.30 - UNSPECIFIED HYDRONEPHROSIS (5) Thoracic aortic aneurysm Assessment/Plan: STABLE Code(s): I71.2 - THORACIC AORTIC ANEURYSM, WITHOUT RUPTURE
[2019-05-15] MEDS: LACTATED RINGERS SOLUTION 1,000 ML IV SCH (21:28)
[2019-05-16 06:27] VITALS: BP 112/55; PULSE 64; TEMP 98.4
[2019-05-16 07:58] LABS: CALCIUM 9.5 mg/dl (8.5-10); CREATININE 0.5 mg/dl (0.55-1.3); MAGNESIUM 1.9 mg/dL (1.8-2.4); POTASSIUM 4.6 mmol/L (3.5-5.1)
[2019-05-16 08:14] LABS: BASO % 0.5 % (0-2.0); HEMATOCRIT 34.5 % (32.4-45.2); HEMOGLOBIN 11.4 GM/dl (10.7-15.3); LYMPH % 49.7 % (8-40); MCH 29.8 pg (25.7-33.7); MEAN CELL VOLUME 90.4 fl (80-96); MEAN PLT VOLUME 8.1 fl (7.5-11.1); MONO % 11.5 % (3.8-10.2); NEUT % 34.3 % (42.8-82.8); PLATELET COUNT 423 K/MM3 (134-434); RBC 3.81 M/mm3 (3.60-5.2); RDW 14.2 % (11.6-15.6); WHITE BLOOD COUNT 4.3 K/mm3 (4.0-10.8)
[2019-05-16] MEDS: CLOPIDOGREL BISULFATE 75 MG TABLET (FP) PO SCH (09:30)
[2019-05-16] MEDS: APIXABAN 5 MG TABLET PO SCH (09:30)
--- NOTE | 2019-05-16 09:31 | DS ---
Physical Examination Vital Signs: Vital Signs Temperature 98.4 F 05/16/19 06:00 Pulse Rate 64 05/16/19 06:00 Respiratory Rate 16 05/16/19 08:55 Blood Pressure 112/55 L 05/16/19 06:00 O2 Sat by Pulse Oximetry (%) 98 05/16/19 08:55 Labs: CBC, BMP 05/16/19 07:07 05/16/19 07:07 Discharge Summary Problems reviewed: Yes Reason For Visit: PYELONEPHRITIS Current Active Problems H/O myocardial infarction, greater than 8 weeks (Acute) Pyelonephritis (Acute) Hospital Course: - Problems (1) H/O myocardial infarction, greater than 8 weeks Assessment/Plan: same meds monitor Code(s): I25.2 - OLD MYOCARDIAL INFARCTION (2) Pyelonephritis Assessment/Plan: IV ABX--PO LEVAQUIN DAILY X [address] SCAN ID CONSULT Code(s): N12 - TUBULO-INTERSTITIAL NEPHRITIS, NOT SPCF ACUTE OR CHRONIC (3) GERD (gastroesophageal reflux disease) Assessment/Plan: PPI Code(s): K21.9 - GASTRO-ESOPHAGEAL REFLUX DISEASE WITHOUT ESOPHAGITIS (4) Hydronephrosis Assessment/Plan: CT SCAN NOTED CHRONIC Code(s): N13.30 - UNSPECIFIED HYDRONEPHROSIS (5) Thoracic aortic aneurysm Assessment/Plan: STABLE Code(s): I71.2 - THORACIC AORTIC ANEURYSM, WITHOUT RUPTURE Condition: Improved - Instructions Referrals: Tucker Jiménez MD [Staff Physician] - Disposition: HOME - Home Medications Comprehensive Discharge Medication List: Ambulatory Orders Alprazolam [Xanax] 1 mg PO QID PRN 12/19/18 Epinephrine [Epipen 2-Claude] 0.3 mg IJ PRN PRN 12/19/18 Oxycodone HCl/Acetaminophen [Percocet 5-325 mg Tablet] 1 tab PO Q6H PRN Acetaminophen 1,000 mg PO TID PRN 02/17/19 Apixaban [Eliquis] 5 mg PO BID 02/17/19 Clopidogrel Bisulfate [Plavix] 75 mg PO DAILY 02/17/19 Lansoprazole [Prevacid] 30 mg PO DAILY 02/17/19 Lansoprazole [Prevacid] 30 mg PO DAILY 05/12/19 Meclizine HCl 25 mg PO PRN PRN 05/12/19 levoFLOXacin [Levaquin -] 500 mg PO DAILY #7 tablet 05/16/19
== END 2019-05-16 13:55 | disposition home or self-care (01) | DRG 690 ==
LOC: FER 16:27 → FM/S 18:45
PROVIDERS: ADMIT Internal Medicine; ATTEND Family Medicine
DX: N12 Tubulo-interstitial nephritis, not specified as acute or chronic (principal); N13.30 Unspecified hydronephrosis; I25.10 Atherosclerotic heart disease of native coronary artery without angina pectoris; N28.9 Disorder of kidney and ureter, unspecified; F41.9 Anxiety disorder, unspecified; N39.0 Urinary tract infection, site not specified; I71.2 Thoracic aortic aneurysm, without rupture; K21.9 Gastro-esophageal reflux disease without esophagitis; M06.9 Rheumatoid arthritis, unspecified; I25.2 Old myocardial infarction
CPT/HCPCS: 36415; 71045-TC-FY; 74176-TC; 76775-TC; 76856-TC; 80048; 80053; 81003; 81015; 82550; 83605; 83735; 84484; 85025; 85610; 87040; 87086; 87186; 87324; 87449; 93005; 97116-GP; 97162-GP; 99285-25

== ENCOUNTER 2019-09-30 14:28 | Emergency (ER) | payer OTHER, BC ==
[2019-09-30 14:45] VITALS: BP 102/72; PULSE 83; TEMP 97.9; BMI 19.8
--- NOTE | 2019-09-30 15:53 | PDOC ---
Documentation entered by Manpreet Roy SCRIBE, acting as scribe for Светлана Ramos MD. Светлана Ramos MD: This documentation has been prepared by the Kirill murillo Angel, SCRIBE, under my direction and personally reviewed by me in its entirety. I confirm that the documentation accurately reflects all work, treatment, procedures, and medical decision making performed by me. History of Present Illness - General Chief Complaint: Weakness Stated Complaint: WEAKNESS,FATIQUE,GENERALIZED PAIN Time Seen by Provider: 09/30/19 14:36 History Source: Patient Exam Limitations: No Limitations - History of Present Illness Initial Comments: 09/30/19 15:42 The patient is a 69 year old female with a significant past medical history of anemia, history of tachyarrhythmia thoracic aneurysm, GERD, SLIM, hydronephrosis, HLD, cholecystitis, anxiety and connective tissue disease who presents to the ED with 3 weeks of generalized weakness, intermittent headaches and feeling more fatigued than usual. The patient also reports chest discomfort that has been going on for months now which she states resolves with Prevacid. The patient states she spoke with her PCP () and was told to come into the ED for evaluation due to concern of her cardiac history. The patient notes some nasal congestion but denies any fevers, cough, SOB, dysuria, hematuria or lower extremity swelling. Past History - Medical History Allergies/Adverse Reactions: Allergies Allergy/AdvReac Type Severity Reaction Status Date / Time Sulfa (Sulfonamide Allergy Severe Verified 09/30/19 14:30 Antibiotics) sodium chloride Allergy Unknown Verified 09/30/19 14:30 iohexol [From Omnipaque] Allergy Verified 09/30/19 14:30 shrimp Allergy Verified 09/30/19 14:30 meperidine [From Demerol] AdvReac Mild Verified 09/30/19 14:30 prednisone AdvReac Mild CONFUSION Verified 09/30/19 14:30 sodium chloride for AdvReac Verified 09/30/19 14:30 inhalation [From Saline] N/SALINE Allergy Intermediate Uncoded 09/30/19 14:31 beta valentin Allergy Unknown Uncoded 09/30/19 14:31 Home Medications: Ambulatory Orders Alprazolam [Xanax] 1 mg PO QID PRN 12/19/18 Oxycodone HCl/Acetaminophen [Percocet 5-325 mg Tablet] 1 tab PO Q6H PRN 12/19/18 Acetaminophen 1,000 mg PO TID PRN 02/17/19 Apixaban [Eliquis] 5 mg PO BID 02/17/19 Clopidogrel Bisulfate [Plavix] 75 mg PO DAILY 02/17/19 Lansoprazole [Prevacid] 30 mg PO DAILY 05/12/19 Anemia: Yes Cardiac Disorders: Yes (h/o tachyarrhythmia THORACIC ANEURSYM) COPD: No GI Disorders: Yes (GERD. C.DIFF) Disorders: Yes (SLIM, HYDRONEPHROSIS) Hypercholesterolemia: Yes Liver Disease: Yes (CHOLECYSTITIS) Psychiatric Problems: Yes (ANXIETY) Other medical history: connective tissue disease - Psycho-Social/Smoking History Smoking History: Former smoker Have you smoked in the past 12 months: No Number of Cigarettes Smoked Daily: 0 If you are a former smoker, when did you quit?: 18 years Information on smoking cessation initiated: No 'Breaking Loose' booklet given: 02/02/15 - Substance Abuse Hx (Audit-C & DAST Scrn) How often the patient has a drink containing alcohol: 4 0r more times/wk Number of drinks the patient has on a typical day: 1 or 2 How often the patient has six or more drinks on one occasion: Never Score: In Men: 4 or > Positive; In Women: 3 or > Positive: 4 Screen Result (Pos requires Nsg. Audit-10AR): Positive In the last yr the pt used illegal drug/Rx for NonMed reason: No Score: Yes response is considered Positive: 0 Screen Result (Positive result requires Nsg. DAST-10): Negative Review of Systems - Review of Systems Able to Perform ROS?: Yes Comments:: 09/30/19 15:45 GENERAL/CONSTITUTIONAL: +Generalized weakness. No fever or chills. HEAD, EYES, EARS, NOSE AND THROAT: +Nasal congestion. No change in vision. No ear pain or discharge. No sore throat. CARDIOVASCULAR: +Chest discomfort. No shortness of breath. RESPIRATORY: No cough, wheezing, or hemoptysis. GASTROINTESTINAL: No nausea, vomiting, diarrhea or constipation. GENITOURINARY: No dysuria, frequency, or change in urination. MUSCULOSKELETAL: No joint or muscle swelling or pain. No neck or back pain. SKIN: No rash NEUROLOGIC: +Intermittent Headaches. +Fatigue. No vertigo, loss of conscious ness, or change in sensation. ENDOCRINE: No increased thirst. No abnormal weight change. HEMATOLOGIC/LYMPHATIC: No anemia, easy bleeding, or history of blood clots. ALLERGIC/IMMUNOLOGIC: No hives or skin allergy. *Physical Exam - Vital Signs Last Vital Signs Temp Pulse Resp BP Pulse Ox 97.9 F 83 17 102/72 100 09/30/19 14:30 09/30/19 14:30 09/30/19 14:30 09/30/19 14:30 09/30/19 14:30 - Physical Exam 09/30/19 15:46 GENERAL: Awake, alert, and fully oriented, in no acute distress HEAD: No signs of trauma EYES: PERRLA, EOMI, sclera anicteric, conjunctiva clear ENT: Auricles normal inspection, hearing grossly normal, nares patent, oropharynx clear without exudates. Moist mucosa NECK: Normal ROM, supple, no lymphadenopathy, JVD, or masses LUNGS: Breath sounds equal, clear to auscultation bilaterally. No wheezes, and no crackles HEART: Regular rate and rhythm, normal S1 and S2, no murmurs, rubs or gallops ABDOMEN: Soft, nontender, normoactive bowel sounds. No guarding, no rebound. No masses EXTREMITIES: Normal range of motion, no edema. No clubbing or cyanosis. No co rds, erythema, or tenderness NEUROLOGICAL: Cranial nerves II through XII grossly intact. Normal speech, normal gait SKIN: Warm, Dry, normal turgor, no rashes or lesions noted. Heart Score/ECG Review - ECG Impressions Comment:: 09/30/19 15:49 sinus, rate 76, unchanged from prior ED Treatment Course - LABORATORY CBC & Chemistry Diagram: 09/30/19 15:45 09/30/19 15:45 Medical Decision Making - Medical Decision Making 09/30/19 15:49 69 yo F here with multiple complaints ongoing for 3 weeks and chest discomfort xfew months, unremarkable PE and EKG unchanged from prior to low suspicion for ACS. Possible UTI vs. PNA vs. viral syndrome vs. exacerbation of her rheumatologic disorder (pt. reports she is in the process of getting an appointment for f/u with her sound assistant) vs. anemia vs. COVID. Chest discomfort possibly 2/2 GERD as pain is relieved by prevacid and EKG unchanged from prior and chest discomfort is atypical of cardiac chest pain. Plan: -labs -cxr -urine -COVID testing -reassess, if labs and imaging unremarkable anticipate d/c home with return precautions, recommend PMD and rheumatology f/u This clinical encounter is taking place during a federal and state health care emergency attributable to the novel Garcia Virus pandemic. The [place] of the Department of Health and Human Services has declared, pursuant to the Public Health Service Act 319F-3 (42 U.S.C. 247d-6d), that a covered persons activities related to medical countermeasures against COVID-19 will be immune from liability under Federal and State law. 09/30/19 17:34 Labs and imaging reviewed. No concerning abnormalities. Will d/c with reutnr precautions. recommend PMD f/u. Patient verbalized understanding and feels well enough and comfortable to go home. Discharge - Discharge Information Problems reviewed: Yes Clinical Impression/Diagnosis: Fatigue Qualifiers: Fatigue type: unspecified Qualified Code(s): R53.83 - Other fatigue Condition: Stable Disposition: HOME - Admission No - Follow up/Referral Referrals: Tucker Jiménez MD [Primary Care Provider] - - Patient Discharge Instructions Patient Printed Discharge Instructions: DI for Fatigue Additional Instructions: You should follow up with your PMD and sound assistant. Return to the ED for new or worsening symptoms. Print Language: MAORI - Post Discharge Activity
[2019-09-30 16:14] LABS: BASO % 0.5 % (0-2.0); EOS % 1.8 % (0-4.5); HEMATOCRIT 37.2 % (32.4-45.2); HEMOGLOBIN 12.1 GM/dl (10.7-15.3); LYMPH % 33.1 % (8-40); MCH 30.4 pg (25.7-33.7); MCHC 32.7 g/dl (32.0-36.0); MEAN PLT VOLUME 7.9 fl (7.5-11.1); NEUT % 54.6 % (42.8-82.8); PLATELET COUNT 336 K/MM3 (134-434); RDW 13.9 % (11.6-15.6); WHITE BLOOD COUNT 5.3 K/mm3 (4.0-10.8)
[2019-09-30 16:19] LABS: ALBUMIN 4.1 g/dl (3.4-5.0); BILIRUBIN,TOTAL 0.7 mg/dl (0.2-1); CALCIUM 9.4 mg/dl (8.5-10); CREATININE 0.5 mg/dl (0.55-1.3); POTASSIUM 4.2 mmol/L (3.5-5.1); TOT PROT 6.3 g/dl (6.4-8.2)
[2019-09-30 16:34] LABS: INR 1.3 (0.82-1.09); PROTHROMBIN TIME (PATIENT) 14.5 SEC (10.2-13.0)
--- NOTE | 2019-10-01 10:39 | EKG ---
Test Reason : Blood Pressure : / mmHG Vent. Rate : 073 BPM Atrial Rate : 073 BPM P-R Int : 122 ms QRS Dur : 084 ms QT Int : 414 ms P-R-T Axes : 069 045 -10 degrees QTc Int : 456 ms POOR DATA QUALITY, INTERPRETATION MAY BE ADVERSELY AFFECTED NORMAL SINUS RHYTHM POSSIBLE LEFT ATRIAL ENLARGEMENT POSSIBLE INFERIOR INFARCT (CITED ON OR BEFORE 12-MAY-2019) ABNORMAL ECG WHEN COMPARED WITH ECG OF 12-MAY-2019 18:25, PREMATURE VENTRICULAR COMPLEXES ARE NO LONGER PRESENT Confirmed by Smith Lynch MD ([id number]) on 10/01/2019 10:39:20 AM Referred By: MD HILTON Confirmed By:Smith Lynch MD
== END 2019-09-30 17:45 | disposition home or self-care (01) ==
LOC: FER 14:28
DX: R53.83 Other fatigue (principal)
CPT/HCPCS: 36415; 71046-TC-FY; 80053; 81003; 81015; 82550; 84484; 85025; 85610; 85651; 85730; 86140; 87086; 93005; 99284-25; U0003

== ENCOUNTER 2020-07-29 13:37 | Emergency (ER) | payer OTHER, BC ==
[2020-07-29 13:57] VITALS: BP 134/69; PULSE 83; TEMP 99.5; BMI 22.2
[2020-07-29] MEDS ORDERED: FLUCONAZOLE 100 MG TABLET (UD) PO ONE (15:09)
[2020-07-29] MEDS ORDERED: valACYclovir HCL 1000 MG TABLET PO ONE (15:09)
[2020-07-29] MEDS ORDERED: FLUCONAZOLE 150 MG TABLET PO ONE (15:12)
[2020-07-29] MEDS ORDERED: valACYclovir HCL 500 MG TABLET (FP) ONE (15:12)
[2020-07-29] MEDS ORDERED: FLUCONAZOLE 50 MG TABLET PO ONE (15:21)
== END 2020-07-29 15:38 | disposition home or self-care (01) ==
LOC: FER 13:37
DX: N94.819 Vulvodynia, unspecified (principal); B37.9 Candidiasis, unspecified; N76.89 Other specified inflammation of vagina and vulva
CPT/HCPCS: 99283-25